=== PATIENT | male | born 1970 | race Caucasian/White ===

== ENCOUNTER 2023-03-09 12:08 | Emergency (ER) | payer MEDICAID ==
[~2023-03-09] VITALS: Ht 182.9 cm; Wt 104.0 kg
[2023-03-09 12:32] VITALS: BP 107/73; PULSE 100; RESP 16; TEMP 98.6; O2SAT 96
== END 2023-03-09 14:31 | disposition left against medical advice (07) ==
LOC: ER 12:08
DX: Z53.21 Procedure and treatment not carried out due to patient leaving prior to being seen by health care provider (principal); I49.9 Cardiac arrhythmia, unspecified
CPT/HCPCS: 93005; 99281